=== PATIENT | female | born 1985 | race Caucasian/White ===

== ENCOUNTER → 2016-10-06 | Outpatient (CLI) | payer OTHER ==
[~2016-10-06] MED LIST: AUGMENTIN875 MG PO; ENDOCET 5-3251 EACH PO; ESSENTIAL DAIL1 EACH PO; FIORICET,ESG1 TABLET PO; HUMALOG100 UNIT/1 SC; HUMULIN N100 UNITS/ SC; IBUPROFEN800 MG PO; IRON325 M1 PO; LIDODERM 5% P1 PATCH TD; PRENATAL TABLE1 EAC3 PO; TYLENOL WITH C1 EACH PO; ZOFRAN4 MG PO; ZOVIRAX400 MG PO
== END | disposition home or self-care (01) ==
LOC: RAD 12:45
DX: R07.89 Other chest pain (principal); R05 Cough
CPT/HCPCS: 71101